=== PATIENT | female | born 1990 | race Caucasian/White ===

== ENCOUNTER 2020-10-27 12:54 | Emergency (ER) | payer OTHER ==
[~2020-10-27] VITALS: Ht 162.6 cm; Wt 54.4 kg
[2020-10-27] MEDS ORDERED: IBUP-1955 PO (13:28)
[2020-10-27] MEDS ORDERED: KETOROLAC TROMETHAMINE INJ 30 MG/ML VIAL IM ONE (13:30)
[2020-10-27] MEDS ORDERED: KETOROLAC TROMETHAMINE 15 MG/ML VIAL ONE (13:43)
--- NOTE | 2020-10-27 13:47 | NUR ---
CALLED ALFREDO FOR READ.
[2020-10-27 14:06] VITALS: BP 139/82
== END 2020-10-27 14:06 | disposition home or self-care (01) ==
LOC: ER 12:54
DX: S20.212A Contusion of left front wall of thorax, initial encounter (principal); W11.XXXA Fall on and from ladder, initial encounter; Y93.89 Activity, other specified; Y92.89 Other specified places as the place of occurrence of the external cause; Y99.8 Other external cause status
CPT/HCPCS: 71100; 96372; 99283; J1885